=== PATIENT | female | born 1995 | race Caucasian/White ===

== ENCOUNTER → 2016-05-12 | Outpatient (CLI) | payer OTHER ==
--- NOTE | 2016-05-12 11:32 | US ---
Right Upper Quadrant Sonogram Indication: Epigastric and right upper quadrant pain. Findings: An ovoid well-circumscribed mass in the caudate lobe is new since May 2009. The lesion, measuring 4.0 cm craniocaudal x 3.0 x 3.4 cm axially, is minimally echogenic and heterogeneous relat le to the background liver. A central feeding vessel is evident on color Doppler imaging. The normal size liver, measuring 16.6 cm in the midaxillary line, has normal echogenicity and echotexture. The gallbladder is normal. No intraluminal stones, sludge, wall thickening, or sonographic Cowan sig n. Common bile duct is normal caliber (3 mm). Portal vein is patent. The abdominal aorta is normal caliber. The right kidney is unremarkable. No hydronephrosis. The right kidney measures 10.7 cm in length x 4. 0 x 3.1 cm axially. No free fluid. The imaged portions of the pancreatic neck, head, and central body are normal. The pa ncreatic tail is obscured by bowel gas. Impression: 1. New indeterminate 4 cm mass in the caudate lobe of the liver since 2009. Differential diagnosis in cludes focal nodular hyperplasia, adenoma, and less likely hemangioma. 2. Normal gallbladder. No cholelithiasis, biliary dilation, or free fluid. Recommendation: MRI of the abdomen without and with intravenous contrast to optimally characterize th e caudate lesion. Recommend utilizing Eovist (hepatobiliary contrast). A Follow-Up Required test result notification was sent via the [employer] service, 11:28:12 AM, 05/12/2016 , [employer] Message ID [id number].
== END ==
LOC: FIMAGING 10:16
PROVIDERS: ATTEND Internal Medicine Gastroenterology
DX: K76.89 Other specified diseases of liver (principal)

== ENCOUNTER → 2016-10-01 | Outpatient (CLI) | payer OTHER ==
[~2016-10-01] MED LIST: GADOBUTROL 10 ML VIAL IVP ONE
== END ==
LOC: FIMAGING 13:58
PROVIDERS: ATTEND Internal Medicine Gastroenterology
DX: R93.2 Abnormal findings on diagnostic imaging of liver and biliary tract (principal); R10.13 Epigastric pain
CPT/HCPCS: A9585

== ENCOUNTER → 2017-04-19 | Outpatient (CLI) | payer OTHER | LOC: FIMAGING 09:45 | PROVIDERS: ATTEND Internal Medicine Gastroenterology | DX: K76.89 Other specified diseases of liver (principal) ==

== ENCOUNTER → 2017-10-11 | Outpatient (CLI) | payer OTHER | LOC: FIMAGING 07:03 | PROVIDERS: ATTEND Internal Medicine Gastroenterology | DX: K76.9 Liver disease, unspecified (principal) ==

== ENCOUNTER → 2017-11-16 | Outpatient (CLI) | payer OTHER | LOC: FIMAGING 12:52 | PROVIDERS: ATTEND Internal Medicine Gastroenterology | DX: R10.11 Right upper quadrant pain (principal); R93.2 Abnormal findings on diagnostic imaging of liver and biliary tract | CPT/HCPCS: 78227; A9537 ==

== ENCOUNTER → 2018-04-05 | Outpatient (CLI) | payer OTHER | LOC: FIMAGING 08:54 | DX: R10.13 Epigastric pain (principal) | CPT/HCPCS: 78264; A9541 ==

== ENCOUNTER → 2018-10-14 | Outpatient (CLI) | payer OTHER | LOC: FIMAGING 08:15 ==